=== PATIENT | female | born 1940 | race Caucasian/White ===

== ENCOUNTER 2017-05-08 09:15 | Outpatient (CLI) | payer OTHER ==
[~2017-05-08 09:15] MED LIST: AVAPRO150 MG PO; CARVEDILOL6.25 MG PO; CIPRO500 MG PO; DICLOFENAC SODI50 MG; DICLOFENAC SODI50 MG PO; ENALAPRIL MALE2.5 MG PO; FUROSEMIDE40 MG PO; ISOSORBIDE DINIT5 MG PO; PERCOCET 5-3251 EACH PO; XARELTO10 MG PO
== END 2017-05-08 09:22 | disposition home or self-care (01) ==
LOC: EKG 09:15
DX: I10 Essential (primary) hypertension (principal)

== ENCOUNTER 2017-05-24 11:41 | Inpatient (IN) | payer OTHER ==
[~2017-05-24] VITALS: Ht 157.5 cm; Wt 80.3 kg
[2017-05-24] MEDS ORDERED: LEVOTHYROXINE75 MCG PO (20:52)
[2017-05-24] MEDS ORDERED: ISORDIL10 MG PO (20:53)
[2017-05-24] MEDS ORDERED: FUSION PLUS CA1 EACH PO (20:53)
[2017-05-24] MEDS ORDERED: IRBESARTAN75 MG PO (20:53)
== END 2017-06-01 12:33 | disposition expired | DRG 871 ==
LOC: ER 11:41 → ICU-2 05-25 01:40 → ICU 05-25 01:40
PROC: 8E0ZXY6 Isolation (ICD-10-PCS; 2017-05-25)
PROC: 4A12X4Z Monitoring of Cardiac Electrical Activity, External Approach (ICD-10-PCS; 2017-05-25)
PROC: B246ZZZ Ultrasonography of Right and Left Heart (ICD-10-PCS; 2017-05-27)
PROC: 5A1945Z Respiratory Ventilation, 24-96 Consecutive Hours (ICD-10-PCS; principal; 2017-05-28)
PROC: 0BH17EZ Insertion of Endotracheal Airway into Trachea, Via Natural or Artificial Opening (ICD-10-PCS; 2017-05-28)
PROC: 4A033R1 Measurement of Arterial Saturation, Peripheral, Percutaneous Approach (ICD-10-PCS; 2017-05-28)
PROC: 06HN33Z Insertion of Infusion Device into Left Femoral Vein, Percutaneous Approach (ICD-10-PCS; 2017-05-30)
DX: A41.9 Sepsis, unspecified organism (principal); R65.21 Severe sepsis with septic shock; L89.154 Pressure ulcer of sacral region, stage 4; G92 Toxic encephalopathy; I50.23 Acute on chronic systolic (congestive) heart failure; J96.01 Acute respiratory failure with hypoxia; M62.82 Rhabdomyolysis; A09 Infectious gastroenteritis and colitis, unspecified; E27.49 Other adrenocortical insufficiency; L03.317 Cellulitis of buttock; N17.8 Other acute kidney failure; I13.0 Hypertensive heart and chronic kidney disease with heart failure and stage 1 through stage 4 chronic kidney disease, or unspecified chronic kidney disease; B37.0 Candidal stomatitis; I70.298 Other atherosclerosis of native arteries of extremities, other extremity; R34 Anuria and oliguria; E86.1 Hypovolemia; I99.8 Other disorder of circulatory system; B96.20 Unspecified Escherichia coli [E. coli] as the cause of diseases classified elsewhere; B95.2 Enterococcus as the cause of diseases classified elsewhere; R32 Unspecified urinary incontinence; J10.1 Influenza due to other identified influenza virus with other respiratory manifestations; E86.0 Dehydration; E03.8 Other specified hypothyroidism; N18.1 Chronic kidney disease, stage 1